=== PATIENT | male | born 1990 | race Caucasian/White ===

== ENCOUNTER 2020-11-29 20:16 | Outpatient (REF) | payer MEDICAID, SELFPAY ==
[2020-11-29 20:18] LABS: VALPROIC ACID 79.8 ug/mL (50-100)
== END 2020-11-29 20:17 | disposition home or self-care (01) ==
LOC: NCHCN 20:16
PROVIDERS: PCP Nurse Practitioner Family; Visit Provider Nurse Practitioner Family
DX: R56.9 Unspecified convulsions (principal); Z51.81 Encounter for therapeutic drug level monitoring
CPT/HCPCS: 80164

== ENCOUNTER 2024-07-23 15:34 | Outpatient (CLI) | payer MEDICAID, SELFPAY ==
--- OUTSIDE RECORDS SUMMARY | 2024-07-23 15:37 | XMS_ITS | Data Portability ---
Author Organization [facility] Address [address] [place] [address] Assessment Encounter Date Assessment Date Assessment LastModified by Organization Details LastModified Time 02/26/2024 02/26/2024 med list updated/verif ied by [place] [facility] records 02/27/24 Not available 02/27/2024 08:51:12 Plan of Treatment Reminders Order Date Submit Date Provider Last Modified By Organization Details Last Modified Time Details Appointments None record ed. Lab None record ed. Referral None record ed. Procedures None record ed. Surgeries None record ed. Imaging None record ed. Medication Orders None record ed. Patient TargetsNo targets recorded. Patient InstructionsNo instructions recorded. Reason for Referral None Reported. Problems Name Problem SNOMED Code Status Onset Date Resolution Date Notes Provider Name and Address Organization Details Recorded Time Autistic disorder 542393481 Active 2007 Problem Code: F84.0; Problem Code Type: ICD-10; [address], [place], [address] , [facility] 4 12:39:01 Adult health examinat ion Active 2016 Problem Code: Z00.00; Problem Code Type: ICD-10; Not Available [facility] 3 05:51:47 Seizure 83907282 Active 2017 Problem Code: R56.9; Problem Code Type: ICD-10; [address], [place], [address] , [facility] 4 12:39:04 Lacerati on of lower leg without foreign body 822901394 Completed 201908/16/2020 07/26/20 20 - Comments only - Minerva Lai OFFICE SPEC - from dog bite, includin g puncture wounds. Occured this AM from foster dog. No active bleeding or red flags at this time. Clean bandages applied in office. Discusse d wound care and s/sx of infectio n with caregive r Alvarez. Will treat with prophyla ctic abx (Augment in BID x 3 days). Caregive r to return with Sten if any concerns or need for reassess ment. Problem Code: S81.812S ; Problem Code Type: ICD-10; Not Available [facility] 3 05:51:47 Low back pain 009293926 Completed 201908/22/2020 Problem Code: M54.5; Problem Code Type: ICD-10; Not Available [facility] 3 05:51:50 Acute upper respirat ory infectio n 23244646 Completed 201808/22/2020 Problem Code: J06.9; Problem Code Type: ICD-10; Not Available [facility] 3 05:51:56 Pre-surg enma evaluati on Completed 201508/22/2020 Problem Code: Z01.818; Problem Code Type: ICD-10; Not Available [facility] 3 05:51:56 Impacted cerumen of bilatera l ears [id number] 44010 Completed 201708/22/2020 Problem Code: H61.23; Problem Code Type: ICD-10; Not Available [facility] 3 05:51:56 Autistic disorder of childhoo d onset 83768103 Completed 200707/24/2023 Problem Code: 299.00; Problem Code Type: ICD-9; Not Available [facility] 3 05:51:58 Autism spectrum disorder 16377065 Active 2023 SACHA BAEZA [address], [place], [address] , [facility]. 4 12:40:45 Problem Notes None recorded. Medical Equipment None Reported. Allergies No known drug allergies Medications Name Sig Start Date Stop Date Status Note LastModified by Organization Details LastModified Time quetiapine 25 mg tablet 02/25 completed Not Available Not Available Not Available clonidine HCl 0.1 mg tablet Take one tablet by mouth four times a day active Not Available Not Available No t Available trazodone 50 mg tablet Take two tablets by mouth at bedtime active Not Available Not Available No t Available Risperdal 1 mg tablet qhs 08/03 completed Not Available Not Available Not Available azithromycin 250 mg tablet Take 2 by mouth now, then take 1 by mouth daily x 4 days 01/07 completed Not Available Not Available Not Available Lamictal 200 mg tablet bid 01/24 completed Not Available Not Available Not Available trazodone 100 mg tablet 02/25 completed Not Available Not Available Not Available divalproex ER 500 mg tablet,exten ded release 24 hr Take 1 tablet by mouth twice a day active Not Available Not Available No t Available Lamictal 100 mg tablet 1 qd 01/31 completed Not Available Not Available Not Available ibuprofen 200 mg tablet 1 three times daily 12/16 completed Not Available Not Available Not Available Lamictal 150 mg tablet 1 bid 08/03 completed Not Available Not Available Not Available alprazolam 2 mg tablet max 2 qd 02/25 completed Not Available Not Available Not Available albuterol 90 mcg/actuatio n aerosol inhaler 2 puffs .q 4 hr prn 09/03 completed Not Available Not Available Not Available naproxen 500 mg tablet Take 1 tab by mouth twice daily, then BID as needed 08/22 completed Not Available Not Available Not Available amoxicillin 875 mg-potassium clavulanate 125 mg tablet Take 1 tablet twice a day for 3 days 07/29 completed Not Available Not Available Not Available Vitamin D3 25 mcg (1,000 unit) tablet Daily 2015 active Not Available Not Available Not Avai lable alprazolam ER 2 mg tablet,exten ded release 24 hr Take 1 tablet by mouth twice a day active Not Available Not Available No t Available alprazolam ER 1 mg tablet,exten ded release 24 hr Take one tablet by mouth daily at 3:00PM active Not Available Not Available No t Available Lamictal 1 bid 12/06 completed Not Available Not Available Not Available multivitamin 1 tab a day 2015 active Not Available Not Available Not Avai lable quetiapine 50 mg tablet Take one tablet by mouth twice a day active Not Available Not Available No t Available Sodium Fluoride 5000 Dry Mouth 1.1 % dental paste active Not Available Not Available Not Available Vitals Date Recorded Body height Body mass index (BMI) Body weight Body temperature Heart rate Respiratory rate Systolic blood pressure Diastolic blood pressure Provider Name and Address Organization Details Last Updated DateTime 185.42 cm 24.3 kg/m2 59162 g 98.4 [degF] 70 /min 14 /min 102 mm[Hg] 60 mm[Hg] MISA PETTY RN [facility] 11:22:59 Social History Question Answer Notes LastModified by Organizat ion Details LastModified Time Tobacco Smoking Status Never Smoker MISA PETTY RN [facility], [facility] 02/26/2024 11:06:44 Do You Or Have You Ever Used Any Other Forms Of Tobacco Or Nicotine? No Information not available 02/26/2024 Sex: Male Functional Status None recorded. Mental Status None recorded. Family History Nothing Reported Notes:*Problem: Unknown at t his time. CWBesch, SSIS DEVELOPER/vss Medical History No medical history recorded. Immunizations Vaccine Type Date Status Provider Name a nd Address Organization Details Recorded Time Tdap 08/27/2017 completed Not Available [facility] 04:15:21 Past Encounters Encounter ID Performer Location Encounter Start Date Encounter Closed Date Diagnosis/Indication Diagnosis SNOMED-CT Code Diagnosis ICD10 Code [id number] SACHA BAEZA [address] [place] [address] 02/26/2024 11:13:04 02/26/2024 11:48:09 Patient new to provider [id number] 37852 Z76.89 Adult heal th examination 601659536 Z00.00 Seizure 15512406 R56.9 Autism spe ctrum disorder 00119675 F84.0 Health Concerns Section Related Observation LastModified by Organization Detai ls LastModified Time None Recorded Concern Status LastModified by Organization Details LastModified Time None Recorded Advance Directives Directive None Recorded Payers Encounter Date Sequence Insurance Name Policy Number Policy Talavera Covered Member ID Talavera Member ID Guarantor Name 02/26/2024 1 [facility] (MEDICAID) Sam Barnes [id number] Sam Barnes Notes Date Note Type Note Provider Name and Address Organization Details Recorded Time 02/26/2024 text/html HPI Notes: Sam is a 33 year old male here today with his caregiver, TRUONG from [facility]. Statin has autism spectrum disorder as well as history of traumatic brain injury and seizure disorder. He sees Dr. Iglesias at [facility] for management of psychiatric medications and autism related issues. Sees him quite regularly. We do not have any notes from them. Will get updated. He has not been seen in this office since 2019. Is re-establishing care today at [facility] and general check-in for health. They have been having a tough time with sleep and with OCD type tendencies. Ben plans to discuss this at his upcoming visit with Dr. Iglesias. For seizure prevention he is on Depakote ER 500 mg twice a day. No seizure activity for quite some time per caregiver. For sleep he is taking trazodone 100 mg at bedtime as well as quetiapine 50 mg at bedtime and clonidine 0.1 mg as needed. Also can take alprazolam ER 2 mg as needed. SACHA BAEZA [address], [place], [address], [facility]. 04/13/2024 12:42:17
[2024-07-23 16:30] LABS: Hemoglobin A1C 5.3 % (<5.7)
[2024-07-23 17:41] LABS: VALPROIC ACID 69.1 ug/mL
[2024-07-23 17:44] LABS: Calculated LDL 30 mg/dL (<100); Cholesterol 91 mg/dL (<200); HDL Cholesterol 53 mg/dL (40-60); Triglyceride 42 mg/dL (<150)
== END 2024-07-23 15:35 | disposition home or self-care (01) ==
LOC: LBO 15:36
PROVIDERS: Visit Provider Psychiatry & Neurology Psychiatry
DX: Z79.899 Other long term (current) drug therapy (principal); F84.0 Autistic disorder
CPT/HCPCS: 36415; 80061; 80164; 83036

== ENCOUNTER 2025-02-23 00:29 | Outpatient (CLI) | payer MEDICAID, SELFPAY ==
[2025-02-23 16:11] LABS: Hemoglobin A1C 5.1 % (<5.7)
[2025-02-23 16:35] LABS: Cholesterol 144 mg/dL (<200); HDL Cholesterol 63 mg/dL (>or=40); LDL CHOLESTEROL 75 mg/dL (<100)
[2025-02-23 17:29] LABS: VALPROIC ACID 76.8 ug/mL
== END 2025-02-23 00:30 | disposition home or self-care (01) ==
PROVIDERS: Visit Provider Psychiatry & Neurology Psychiatry
DX: Z79.899 Other long term (current) drug therapy (principal)
CPT/HCPCS: 36415; 80061; 83721; 80164; 82465; 83036; 83718

== ENCOUNTER 2025-05-17 13:20 | Outpatient (CLI) | payer MEDICARE, MEDICAID, SELFPAY ==
[2025-05-17 12:08] LABS: Abs Immature Grans 0.01 10^3/uL (0.0-0.06); HCT 40.3 % (40.0-50.0); HGB 13.1 g/dL (13.5-17.5); Immature Grans % 0.2 %; MCH 30.3 pg (27.0-33.0); MCHC 32.5 % (32.0-36.0); MCV 93 fL (80-95); MPV 10.9 fL (8.0-11.0); Platelet Count 159 10^3/uL (130-400); RBC 4.32 10^6/uL (4.36-5.78); RDW 12.5 % (11.8-14.1); RDW-SD 42.8 fL; WBC 5.16 10^3/uL (4.4-10.8)
[2025-05-17 12:47] LABS: ALT 41 U/L (16-63); AST 30 U/L (15-37); Albumin 3.7 g/dL (3.4-5.0); Alkaline Phosphatase 60 U/L (46-116); Anion Gap 4.7 mmol/L (3-11); BUN 17 mg/dL (7-18); Bilirubin, Total 0.6 mg/dL (0.2-1.0); CO2 29.3 mmol/L (21.0-32.0); Calcium 8.9 mg/dL (8.5-10.1); Chloride 103 mmol/L (98-107); Estimated GFR 100.66 (mL/min/1.73m2); Glucose 71 mg/dL (74-106); Potassium 4.3 mmol/L (3.5-5.1); Sodium 137 mmol/L (136-145); TSH 5.71 uIU/mL (0.36-3.74); Total Protein 6.6 g/dL (6.4-8.2)
[2025-05-17 13:10] LABS: T4 5.3 ug/dL (4.7-13.3)
[2025-05-17 13:29] LABS: Lithium 1.1 mmol/L (0.6-1.2)
[2025-05-17 22:48] LABS: T3, Total 105 ng/dL (97-169)
== END 2025-05-17 13:21 | disposition home or self-care (01) ==
LOC: LBO 13:20
PROVIDERS: Visit Provider Psychiatry & Neurology Psychiatry
DX: Z79.899 Other long term (current) drug therapy (principal)
CPT/HCPCS: 36415; 80053; 80164; 80178; 84436; 84439; 84443; 84480; 85025